=== PATIENT | male | born 1960 ===

== ENCOUNTER 2025-02-14 12:00 | Inpatient (IN) | payer OTHER ==
[~2025-02-14] VITALS: Ht 274.3 cm; Wt 93.9 kg
[2025-02-14] MEDS ORDERED: LEVO-T75 MCG PO (14:05)
[2025-02-14] MEDS ORDERED: SIMVASTATIN5 MG (14:06)
[2025-02-18] MEDS ORDERED: BUPIVACAINE HCL/MPF 0.5% 30ML VIAL ONE (07:46)
[2025-02-18] MEDS ORDERED: LIDOCAINE HCL 1%/EPINEPHRINE 20ML VIAL IJ ONE (07:47)
[2025-02-18] MEDS ORDERED: POVIDONE-IODINE 118 ML BOTT TOP ONE (07:47)
[2025-02-18] MEDS ORDERED: DIBUCAINE 30 GM TUBE ONE (07:47)
[2025-02-18] MEDS ORDERED: HEMOSTATIC MATRIX 1 KIT KIT TOP ONE (07:47)
[2025-02-18] MEDS ORDERED: METRONIDAZOLE/SODIUM CHLORIDE 500 MG/100 ML PIGGYBACK IV ONE ×2 (09:15→12:53)
[2025-02-18] MEDS ORDERED: levoFLOXacin IN DEXTROSE 5 % 5 MG/ML PIGGYBAG IV ONE (09:15)
[2025-02-18] MEDS ORDERED: SUGAMMADEX SODIUM 200 MG/2 ML VIAL IV ONE (09:30)
[2025-02-18] MEDS ORDERED: OxyCODONE HCL 5 MG TABLET (ROXICODONE) PO PRN (11:15)
[2025-02-18] MEDS ORDERED: DEXTROSE 50 % IN WATER 0.5 G/ML DISP.SYRIN IV PRN (11:15)
[2025-02-18] MEDS ORDERED: RINGERS SOLUTION,LACTATED 1,000 ML IV SCH (11:15)
[2025-02-18] MEDS ORDERED: ONDANSETRON HCL 2 MG/ML VIAL IV PRN (11:15)
[2025-02-18 12:05] LABS: BASO % 0.4 % (0.1-1.2); EOS # 0.02 (0.04-0.54); EOS % 0.3 % (0.7-7.0); LYMPH # 0.90 (1.18-3.74); LYMPH % 11.3 % (19.3-53.1); MEAN PLATELET VOLUME 11.20 fl (9.4-12.4); MONO # 0.53 (0.24-0.82); MONO % 6.6 % (4.7-12.5); NEUT # 6.49 (1.56-6.13); NEUT % 81.1 % (34.0-71.1); RED CELL DISTRIBUTION WIDTH 13.2 % (11.6-14.4)
[2025-02-18 12:33] LABS: BUN CREA RATIO 12.0 (7.0-25.0); CREATININE SERUM 1.0 mg/dL (0.70-1.30); GFR 74.76; GLUCOSE FASTING 123.0 mg/dL (65-100); OSMOLALITY SERUM 279.0 MOSM/KG (275-295)
[2025-02-18] MEDS ORDERED: ACETAMINOPHEN 500 MG GEL..CAP PO SCH (14:00)
[2025-02-18 20:55] VITALS: BP 152/74; O2SAT 96
[2025-02-18] MEDS ORDERED: FAMOTIDINE/PF 20 MG/2 ML VIAL IV PUSH SCH (21:00)
[2025-02-19 03:55] VITALS: BP 109/61; O2SAT 96
[2025-02-19] MEDS ORDERED: LEVOTHYROXINE SODIUM 75 MCG TABLET PO SCH (06:00)
[2025-02-19 06:46] LABS: BASO % 0.4 % (0.1-1.2); EOS # 0.01 (0.04-0.54); EOS % 0.1 % (0.7-7.0); LYMPH # 1.53 (1.18-3.74); LYMPH % 16.2 % (19.3-53.1); MEAN PLATELET VOLUME 11.80 fl (9.4-12.4); MONO # 1.03 (0.24-0.82); MONO % 10.9 % (4.7-12.5); NEUT # 6.81 (1.56-6.13); NEUT % 72.1 % (34.0-71.1); RED CELL DISTRIBUTION WIDTH 13.3 % (11.6-14.4)
[2025-02-19 09:30] LABS: BUN CREA RATIO 12.0 (7.0-25.0); CREATININE SERUM 1.02 mg/dL (0.70-1.30); GFR 73.07; GLUCOSE FASTING 89.0 mg/dL (65-100); OSMOLALITY SERUM 280.0 MOSM/KG (275-295)
[2025-02-19 09:43] VITALS: BP 113/65; O2SAT 96
[2025-02-19] MEDS ORDERED: INTESTINEX680 M1 PO (12:06)
[2025-02-19] MEDS ORDERED: DIBUCAINE TOP (12:11)
[2025-02-19] MEDS ORDERED: SIMVASTATIN 20 MG TABLET PO SCH (17:00)
== END 2025-02-19 15:32 | disposition home or self-care (01) | DRG 349 ==
LOC: O/R 02-18 06:00 → MEDJ 02-18 06:00 → SURG 02-18 07:00 → MEDJ 02-18 14:40
PROVIDERS: ADMIT Surgery; ATTEND Surgery
PROC: 0DBP7ZZ Excision of Rectum, Via Natural or Artificial Opening (ICD-10-PCS; principal; 2025-02-18 07:00)
DX: D12.8 Benign neoplasm of rectum (principal)